=== PATIENT | male | born 1955 | race Caucasian/White ===

== ENCOUNTER 2018-01-27 14:09 | Inpatient (IN) | payer OTHER ==
[~2018-01-27] VITALS: Ht 165 cm; Wt 88.1 kg
--- NOTE | ~2018-01-27 | EKG ---
[place] [address] [facility] [place] [address] ELECTROCARDIOGRAM REPORT Name: LOLA DEAN Room #: 170-8 ADM IN M.R.#: [id number] Admission: 01/27/18 Attend Phys: Nigel Snug MD Discharge: Date of : 51 Report #: [id number] THIS REPORT FOR: //name// [facility] ED Test Date: 2018-01-27 Test Time: 14:11:33 Pat Name: LOLA DEAN Department: Room: Gender: M [employer]: AT : 1955 Requested By: Daniel Salgado Order Number: [id number] MD: London Singh Measurements Intervals [place] Rate: 59 P: 51 MN: 156 QRS: 26 QRSD: 105 T: 7 QT: 412 QTc: 409 Interpretive Statements Sinus rhythm Abnormal R-wave progression, early transition Inferior infarct, old Compared to ECG 11/14/2015 19:03:52 No significant change was found Electronically Signed On 01-27-2018 16:34:41 CDT by London Singh [email or web address] <ELECTRONICALLY SIGNED> By: London Singh MD, [facility] 01/27/18 1634 1411 141 London Singh MD, [facility] /EPI
--- NOTE | ~2018-01-27 | HC ---
[facility] [place] [address] CONSULTATION Name: LOLA DEAN Room #: 207-P ADM IN M.R.#: [id number] Admission: 01/27/18 Attend Phys: Nigel Sung MD Discharge: Date of : 51 Report #: [id number] THIS REPORT FOR: //name// CC: Gisueppe Sung DATE OF SERVICE: 01/27/2018 INPATIENT CONSULTATION PRIMARY CARE PHYSICIAN: Leo Muir MD DESULFURIZER HAND: Giuseppe Horn MD, [facility] CHIEF COMPLAINT: Chest pain. HISTORY OF PRESENT ILLNESS: The patient is a 62-year-old non-Yemeni speaking male who presented with progressive onset of chest discomfort to the Emergency Room at [facility]. His ECG demonstrated nonspecific changes, but the troponin I was elevated at 0.09. His symptoms were apparently occurred at rest. He has been under a lot of stress because of an illness of a daughter. As the patient does not speak [place]i, a lot of this history and physical is abbreviated. He has not been short of breath. He has been compliant with his medications. He had seen Dr. Horn approximately 4 months ago and had been doing fairly well. He was treated and evaluation last year for similar symptoms and ultimately ended up having a cardiac catheterization when did not require revascularization. PAST MEDICAL HISTORY: In November 2015 he was hospitalized and an echocardiogram demonstrated grossly low normal ejection fraction 45%-50% range. His catheterization in 2015 demonstrated the left main had a 60% stenosis. The LAD was occluded, but there was distal flow post-FRANCIS insertion. Circumflex was a codominant vessel and there is a 90% stenosis in the mid circumflex second and third and the right coronary artery codominant is chronically occluded. Saphenous vein grafts x 2 were identified with severe amount of atherosclerosis in the vein graft to the marginal branch. The vein graft to the right coronary artery was noted to be patent without any significant disease. The FRANCIS was widely patent. At that time, medical therapy was recommended. He has hypertension and hyperlipidemia. CURRENT MEDICATIONS: Include lisinopril 2.5 mg daily, aspirin, atorvastatin 20 mg daily, Coreg 3.125 mg p.o. b.i.d. ALLERGIES: No known drug allergies. [address] [address] CONSULTATION Name: LOLA DEANLORENA Room #: 207-P [facility] IN ..#: [id number] Admission: 01/27/18 Attend Phys: Nigel Sung MD Discharge: Date of : 51 Report #: [id number] SOCIAL HISTORY: He is a nonsmoker. . He does not drink. REVIEW OF SYSTEMS: GASTROINTESTINAL: No nausea or vomiting. HEMATOLOGIC: No anemia or renal disorders. SKIN: No rashes. PULMONARY: No cough or fevers. GASTROINTESTINAL: No bleeding. IMPRESSION AND PLAN: 1. Unstable angina. He has a minimally elevated cardiac troponin level and certainly has substrate for a non-ST elevation myocardial infarction, but we will arrange for continued treatment with beta blockers, aspirin and Lovenox. He may benefit from long-acting nitrates. This certainly was a stressful situation that anxiety might have caused an anginal episode. 2. Coronary artery disease, status post coronary artery bypass graft. As noted above, he has severe graft disease in the vein graft to the circumflex marginal system, but a patent left internal mammary artery and vein graft to the right coronary artery. I do not know if he will need another cardiac catheterization, but unless his troponin is significantly elevated, I would suspect his anatomy really has not changed a whole lot. He may benefit long-term from Plavix as it is now generic. 3. Hyperlipidemia. I would continue with the statin. 4. Hypertension. This seems to be fairly stable. By: [id number] Alex Berry MD, FACC /nt
[~2018-01-27 14:09] MED LIST: ADULT TUSS100 MG/5 M PO; CARVEDILOL3.125 MG PO; CEFTIN 250 MG250 MG PO; COLACE100 MG PO; FERREX 150150 MG PO; GUIATUSS DM SY120 ML PO; HYDROCODONE-AP1 EAC6 PO; LIPITOR 20 MG T20 M1 PO; LIPITOR20 MG PO; MELATONIN3 MG PO; MUCINEX TA600 MG/TA2 PO; NOHOMEMEDICATIONS; ST. JOSEPH ASPI81 MG PO; ZESTRIL2.5 MG PO; ZPAK PO
[2018-01-27 14:22] VITALS: BP 136/73
[2018-01-27 14:43] LABS: ABSOLUTE NEUTROPHILS 3.7 thou/uL (1.4-8.2); BASOPHILS 0.5 % (0.0-2.0); EOSINOPHILS 0.8 % (0.0-3.0); HEMOGLOBIN 15.6 gm/dL (14.0-18.0); LYMPHOCYTES 40.2 % (24.0-44.0); MCH 32.6 pg (26.0-34.0); MCHC 34.7 g/dL (28.0-37.0); MONOCYTES 8.9 % (1.0-8.0); PLATELET COUNT 219 thou/uL (150-400); POLYS 49.6 % (36.0-66.0); RBC 4.79 mil/uL (4.50-6.00); RDW 13.4 % (10.5-14.5); WBC 7.4 thou/uL (4.0-11.0)
[2018-01-27 14:49] LABS: CALCIUM 9.1 mg/dL (8.5-10.1); CREATININE 0.8 mg/dL (0.7-1.3); POTASSIUM 4.4 mmol/L (3.5-5.1)
[2018-01-27 14:59] LABS: TROPONIN-I 0.09 ng/mL (<0.06)
[2018-01-27 16:11] VITALS: BP 131/67
[2018-01-27 16:26] VITALS: BP 120/66
[2018-01-27 17:00] VITALS: BP 135/70
[2018-01-27 19:42] VITALS: BP 121/79
[2018-01-27 23:51] VITALS: BP 95/57
[2018-01-28 01:57] LABS: HEMATOCRIT 41.5 % (42.0-52.0); HEMOGLOBIN 14.1 gm/dL (14.0-18.0); MCH 31.8 pg (26.0-34.0); MCHC 33.9 g/dL (28.0-37.0); MCV 93.7 fL (80.0-100.0); RBC 4.43 mil/uL (4.50-6.00); RDW 13.3 % (10.5-14.5); WBC 7.5 thou/uL (4.0-11.0)
[2018-01-28 02:03] LABS: CALCIUM 8.3 mg/dL (8.5-10.1); CREATININE 0.9 mg/dL (0.7-1.3); POTASSIUM 4.1 mmol/L (3.5-5.1)
[2018-01-28 05:24] VITALS: BP 108/67
[2018-01-28 08:00] VITALS: BP 109/66
[2018-01-28 12:00] VITALS: BP 118/58
[2018-01-28] MEDS ORDERED: IMDUR 60 MG TAB60 M1 PO (14:57)
[2018-01-28] MEDS ORDERED: TYLENOL325 MG PO (14:57)
[2018-01-28 15:08] VITALS: BP 118/58
== END 2018-01-28 16:46 | disposition home or self-care (01) | DRG 303 ==
LOC: ER 14:09 → 2N 15:41 → EROBS 15:41 → 2N 17:01
PROVIDERS: Emergency Medicine; Hospitalist
DX: I25.110 Atherosclerotic heart disease of native coronary artery with unstable angina pectoris (principal); E78.00 Pure hypercholesterolemia, unspecified; I10 Essential (primary) hypertension; E78.5 Hyperlipidemia, unspecified; Z79.82 Long term (current) use of aspirin; I25.2 Old myocardial infarction; Z79.899 Other long term (current) drug therapy; Z95.1 Presence of aortocoronary bypass graft
CPT/HCPCS: 10081